=== PATIENT | female | born 2000 | race Caucasian/White ===

== ENCOUNTER 2021-02-06 19:45 | Emergency (ER) | payer BC, SELFPAY ==
[2021-02-06 19:58] VITALS: BP 102/62; PULSE 66; RESP 17; TEMP 36.4; O2SAT 100; BMI 21.2
--- NOTE | 2021-02-06 19:58 | XRR_ITS ---
PROCEDURE INFORMATION: Exam: XR Chest Exam date and time: 02/06/2021 8:27 PM Age: 20 years old Clinical indication: Other: Pre-syncope TECHNIQUE: Imaging protocol: XR of the chest. Views: Frontal portable upright view of the chest. COMPARISON: No relevant prior studies available. FINDINGS: Lungs: Mild pulmonary hyperexpansion. The lungs are otherwise peripherally clear bilaterally. The pulmonary vasculature is normal. Pleural spaces: No pleural effusion. No pneumothorax. Heart/Mediastinum: The heart is normal in size and contour. Bones/joints: No acute abnormality identified. XR/XR chest 1V portable [id number] IMPRESSION: Mild pulmonary hyperexpansion.
--- NOTE | 2021-02-06 19:58 | ECG_ITS ---
[facility] Test Date: 2021-02-06 Pat Name: Sandar Montenegro Department: Room: Gender: Female Inseamer: : 2000 Requested By: Anurag Valdivia I Order Number: [id number] Puja MD: Pete Hernandez M.D. Measurements Intervals [place] Rate: 63 P: 58 SC: 115 QRS: 81 QRSD: 88 T: 60 QT: 381 QTc: 392 Interpretive Statements SINUS RHYTHM WITH SINUS ARRHYTHMIA WITH SHORT SC INTERVAL No previous ECG available for comparison Electronically Signed On 02-07-2021 20:12:32 CDT by Pete Hernandez M.D. [id number] f
[2021-02-06 20:04] VITALS: BP 102/62; PULSE 62; RESP 18; O2SAT 100
[2021-02-06 20:26] LABS: Basophils % 0.5 %; Eosinophils # 0.1 10^3/uL (0.0-0.8); Hematocrit 39.6 % (37.0-47.0); Hemoglobin 13.4 g/dL (11.5-15.3); Lymphocytes # 3.2 10^3/uL (1.5-6.5); Lymphocytes % 53.4 %; Mean Corpuscular HGB Conc 33.8 g/dL (30.0-36.0); Mean Corpuscular Hemoglobin 30.5 pg (28.0-34.0); Mean Corpuscular Volume 90.2 fL (81-99); Mean Platelet Volume 9.7 fL (7.4-10.4); Monocytes # 0.5 10^3/uL (0.2-0.9); Monocytes % 8.1 %; Neutrophils # 2.22 10^3/uL (1.8-8.0); Neutrophils % 36.8 %; Nucleated Red Blood Cells % 0 %; Platelet Count 318 10^3/cmm (130-400); Red Blood Count 4.39 10^6/uL (4.1-5.3); Red Cell Distribution Width 11.9 % (12.1-15.1)
[2021-02-06 20:42] LABS: D Dimer <= 0.27 ug/mIFEU (0-0.59)
[2021-02-06 20:47] LABS: Troponin(5th) Baseline 6 ng/L (0-10)
[2021-02-06 20:55] LABS: Alanine Aminotransferase 8 U/L (0-33); Albumin Level 4.4 g/dL (3.5-5.2); Alkaline Phosphatase 50 IU/L (35-105); Anion Gap 13.8 (5-19); Aspartate Amino Transferase 14 U/L (0-32); Blood Urea Nitrogen 10 mg/dL (6-20); Calcium 8.5 mg/dL (8.5-10.5); Carbon Dioxide 23 mmol/L (22-29); Chloride 106 mmol/L (98-107); Globulin 1.9 g/dL (1.3-4.6); Glomerular Filtration Rate 79.8 mL/min (90-130); Glucose 113 mg/dL (65-115); NT Pro B Type Natriuretic Pept 55 pg/mL (0-125); Osmolality Calculated 288 mOsm/kg (285-295); Potassium 3.8 mmol/L (3.5-5.1); Sodium 139 mmol/L (136-145); Total Bilirubin 0.4 mg/dL (0.15-1.2); Total Protein 6.3 g/dL (6.6-8.7)
[2021-02-06 21:00] VITALS: BP 97/60; PULSE 65; RESP 20; O2SAT 99
[2021-02-06 21:01] VITALS: BP 100/55; BP 104/64; BP 107/70; PULSE 104; PULSE 64; PULSE 92
[2021-02-06 21:09] LABS: HCG, Serum Qual Negative (Negative)
[2021-02-06] MEDS: sodium chloride 0.9% 1,000 ML 999 ML IV (21:21)
--- NOTE | 2021-02-06 21:58 | ECG_ITS ---
[facility] Test Date: 2021-02-06 Pat Name: Sandra Montenegro Department: Room: Gender: Female [place] Encaser: : 2000 Requested By: Anurag Valdivia I Order Number: [id number] Puja MD: Pete Hernandez M.D. Measurements Intervals [place] Rate: 73 P: 67 PA: 126 QRS: 88 QRSD: 92 T: 59 QT: 393 QTc: 434 Interpretive Statements SINUS RHYTHM WITH SINUS ARRHYTHMIA Compared to ECG 02/06/2021 20:29:28 Short PA interval no longer present Electronically Signed On 02-07-2021 20:14:42 CDT by Pete Hernandez M.D. [id number] f
[2021-02-06 22:02] VITALS: BP 117/57; PULSE 65; RESP 17; O2SAT 97
[2021-02-06 22:31] LABS: Troponin 5 2HR Delta 0 ABS# (0-10)
--- NOTE | 2021-02-06 22:47 | W.ED.SYNCOPE ---
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 Syncopal episode lasted only a few seconds but she did not actually fall and hit her head. She was called by her coworkers. When her blood pressure was checked after the event she was hypotensive. Her symptoms have all resolved now. She has had a prior history of this but she states that it was a long time ago. She denies any chest pain shortness of breath, dizziness or confusion. She denies any fever or recent illness. MD complaint: loss of consciousness Onset (ago): minute(s) -: second(s) Prodromal symptoms: vision changes Witnessed: Yes - by Bystander (coworker) Context: standing up Injuries sustained associated with event: none Associated symptoms: Deny abdominal pain, chest pain, fever(s), headache(s), lightheadedness, nausea, short of breath, vertigo or weakness History: previous syncopal episode Treatments prior to arrival: none Review of Systems General: Reports: 10 or more systems reviewed and unremarkable except in HPI and below Const: Denies: fever(s) Card: Denies: chest pain or lightheadedness GI: Denies: abdominal pain or nausea Neuro: Denies: headache(s) or vertigo Physical Exam Const: COMMON NORMALS: no acute distress, average body habitus, patient oriented x3, no limitations, healthy appearing, alert and well nourished HENMT: COMMON NORMALS: normocephalic, atraumatic and moist oral mucous membranes HEAD & SCALP: normocephalic and atraumatic Eye: COMMON NORMALS: Equal, round and reactive pupils present, EOMs intact bilaterally, conjunctivae normal and no scleral icterus CONJUNCTIVA: Yes conjunctivae normal PUPIL: Yes Equal, round and reactive pupils present Neck/C-Spine: COMMON NORMALS: full ROM, supple, no meningeal signs, no JVD and No carotid bruits Resp: COMMON NORMALS: normal respiratory effort, No retractions, No use of accessory muscles, clear to auscultation bilaterally and percussion normal AUSCULTATION: clear to auscultation bilaterally PERCUSSION: percussion normal Cardio: COMMON NORMALS: no JVD, regular rate, regular rhythm, S1 normal heart sound present, S2 normal heart sound present, No gallops present (Cardio), No clicks present (Cardio), No murmurs present (Cardio), No rub (Cardio) and Peripheral pulses 2+ throughout RATE: regular rate RHYTHM: regular rhythm HEART SOUNDS: S1 normal heart sound present and S2 normal heart sound present PERIPHERAL PULSES: Peripheral pulses 2+ throughout GI: COMMON NORMALS: Normal to inspection, nondistended, normoactive bowel sounds present, Soft to palpation, non-tender, No hepatosplenomegaly present, no masses and no bruits PALPATION: Yes Soft to palpation and Yes No hepatosplenomegaly present : COMMON NORMALS: Yes no CVA tenderness BLADDER/KIDNEY EXAM: Yes no CVA tenderness Back/Pelvis: COMMON NORMALS: no CVA tenderness Extremity: COMMON NORMALS: normal to inspection, full ROM, capillary refill normal, no calf tenderness and no pedal edema Neuro: COMMON NORMALS: patient oriented x3 SENSORIUM/ORIENTATION: Yes alert MENINGEAL SIGNS: Yes no meningeal signs Skin: COMMON NORMALS: no rashes or lesions noted, no wounds, turgor normal, no jaundice, no petechiae and no mottling GENERAL SKIN EXAM: no rashes or lesions noted and turgor normal Course Reevaluation(s): Reevaluation #1: Discussed her lab and imaging findings with her. Negative for acute findings. Orthostatic vital signs shows that she is orthostatic with her heart rate jumping from 64 while lying down to 104 while standing. Blood pressure did not change significantly. She will be discharged home with no new orders. 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 Evaluation in the emergency department was unremarkable for acute illness but she was positive for orthostasis. She was given IV fluid hydration and discharged home with no new orders. Lab Data: Labs: Lab Results 02/06/21 02/06/21 02/06/21 Range/Units 20:14 20:14 20:14 WBC 6.0 (4.5-13.0) 10^3/ uL RBC 4.39 (4.1-5.3) 10^6/u L Hgb 13.4 (11.5-15.3) g/dL Hct 39.6 (37.0-47.0) % MCV 90.2 (81-99) fL MCH 30.5 (28.0-34.0) pg MCHC 33.8 (30.0-36.0) g/dL RDW 11.9 L (12.1-15.1) % Plt Count 318 (130-400) 10^3/c mm MPV 9.7 (7.4-10.4) fL Neut % (Auto) 36.8 % Lymph % (Auto) 53.4 % [facility] % (Auto) 8.1 % Eos % (Auto) 1.0 % Baso % (Auto) 0.5 % Neut # (Auto) 2.22 (1.8-8.0) 10^3/u L Lymph # (Auto) 3.2 (1.5-6.5) 10^3/u L [facility] # (Auto) 0.5 (0.2-0.9) 10^3/u L Eos # (Auto) 0.1 (0.0-0.8) 10^3/u L Baso # (Auto) 0.0 (0.0-0.1) 10^3/u L Nucleated RBC % (a uto) 0 % Nucleated RBCs # 0.0 /100WBC PT 14.60 (12.1-14.9) SECO NDS INR 1.10 (0.8-1.2) D-Dimer <= 0.27 (0-0.59) ug/mIFE U Sodium 139 (136-145) mmol/L Potassium 3.8 (3.5-5.1) mmol/L Chloride 106 (98-107) mmol/L Carbon Dioxide 23 (22-29) mmol/L Anion Gap 13.8 (5-19) BUN 10 (6-20) mg/dL Creatinine 0.9 (0.5-0.9) mg/dL GFR Calculation 79.8 L (90-130) mL/min Glucose 113 (65-115) mg/dL Calculated Osmolal ity 288 (285-295) mOsm/k g Calcium 8.5 (8.5-10.5) mg/dL Total Bilirubin 0.4 (0.15-1.2) mg/dL AST 14 (0-32) U/L ALT 8 (0-33) U/L Alkaline Phosphata se 50 (35-105) IU/L Troponin T Baselin e (0-10) ng/L Troponin T 120 Min [place] (0-10) ng/L Delta Troponin T (0-10) ABS# NT-Pro-B Natriuret Pep 55 (0-125) pg/mL Total Protein 6.3 L (6.6-8.7) g/dL Albumin 4.4 (3.5-5.2) g/dL Globulin 1.9 (1.3-4.6) g/dL HCG, Qual (Negative) 02/06/21 02/06/21 02/06/21 Range/Units 20:14 20:14 22:10 WBC (4.5-13.0) 10^3/ uL RBC (4.1-5.3) 10^6/u L Hgb (11.5-15.3) g/dL Hct (37.0-47.0) % MCV (81-99) fL MCH (28.0-34.0) pg MCHC (30.0-36.0) g/dL RDW (12.1-15.1) % Plt Count (130-400) 10^3/c mm MPV (7.4-10.4) fL Neut % (Auto) % Lymph % (Auto) % [facility] % (Auto) % Eos % (Auto) % Baso % (Auto) % Neut # (Auto) (1.8-8.0) 10^3/u L Lymph # (Auto) (1.5-6.5) 10^3/u L [facility] # (Auto) (0.2-0.9) 10^3/u L Eos # (Auto) (0.0-0.8) 10^3/u L Baso # (Auto) (0.0-0.1) 10^3/u L Nucleated RBC % (a uto) % Nucleated RBCs # /100WBC PT (12.1-14.9) SECO NDS INR (0.8-1.2) D-Dimer (0-0.59) ug/mIFE U Sodium (136-145) mmol/L Potassium (3.5-5.1) mmol/L Chloride (98-107) mmol/L Carbon Dioxide (22-29) mmol/L Anion Gap (5-19) BUN (6-20) mg/dL Creatinine (0.5-0.9) mg/dL GFR Calculation (90-130) mL/min Glucose (65-115) mg/dL Calculated Osmolal ity (285-295) mOsm/k g Calcium (8.5-10.5) mg/dL Total Bilirubin (0.15-1.2) mg/dL AST (0-32) U/L ALT (0-33) U/L Alkaline Phosphata se (35-105) IU/L Troponin T Baselin e 6 (0-10) ng/L Troponin T 120 Min [place] 6.00 (0-10) ng/L Delta Troponin T 0 (0-10) ABS# NT-Pro-B Natriuret Pep (0-125) pg/mL Total Protein (6.6-8.7) g/dL Albumin (3.5-5.2) g/dL Globulin (1.3-4.6) g/dL HCG, Qual Negative (Negative) Imaging Data^: CXR: Attestation: I personally reviewed and interpreted this imaging study as follows: Radiologist's impression: No acute findings EKG Data^: EKG 1: Attestation: I personally reviewed and interpreted this EKG as follows: EKG interpretation date: 02/06/21 EKG interpretation time: 20:29 Prior EKG tracings: not available for review Interpretation: Sinus rhythm with sinus arrhythmia. Heart rate 63 bpm. Normal axis. No ST changes. EKG 2: Attestation: I personally reviewed and interpreted this EKG as follows: EKG interpretation date: 02/06/21 EKG interpretation time: 22:13 Prior EKG tracings: available for review Interpretation: Sinus rhythm with sinus arrhythmia. Heart rate 73 bpm. Normal axis. No ST changes. No significant change from earlier Discharge Plan Discharge Patient Disposition: Home Clinical Impression: Syncope due to orthostatic hypotension Condition: Stable Prescriptions: Continued Apri 0.15-0.03 mg Tablet 1 tab PO DAILY RF: 0 Zyrtec 10 mg Tablet 10 mg PO DAILY RF: 0 Discharge Orders: Discharge ED (Routine); Ordered 02/06/21 Ordered By: Anurag Valdivia Referrals: Erin Wu MD [Primary Care Provider] - 1-3 days Discharge Diet: Usual diet Discharge Activity: Increase activity as tolerated Patient Instructions: Syncope (ED) Activity Restrictions/Additional Instructions: Return for any new or worsening symptoms. Follow-up with your primary care provider within 3 days. Drink plenty of fluids to keep well-hydrated. Stand Alone Forms: Work/School Release Coding Level of Care Code ED Spinning Bath Person for Jami Martinez
[2021-02-06 23:25] VITALS: BP 103/66; PULSE 77; RESP 18; O2SAT 99
== END 2021-02-06 23:26 | disposition home or self-care (01) ==
PROVIDERS: Emergency Provider Family Medicine; PCP Family Medicine
DX: I95.1 Orthostatic hypotension (principal)
CPT/HCPCS: 71045; 80053; 83880; 84484; 84703; 85025; 85378; 85610; 93005; 96360; 99284; J7030

== ENCOUNTER 2021-02-18 19:08 | Emergency (ER) | payer OTHER, BC, SELFPAY ==
[2021-02-18 19:13] VITALS: BP 127/76; PULSE 77; RESP 17; TEMP 36.6; O2SAT 97; BMI 21.2
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
[2021-02-18 21:03] VITALS: BP 135/76; PULSE 88; RESP 14; O2SAT 96
== END 2021-02-18 21:05 | disposition home or self-care (01) ==
PROVIDERS: Emergency Provider Physician Assistant; PCP Family Medicine
DX: S01.111A Laceration without foreign body of right eyelid and periocular area, initial encounter (principal); V89.2XXA Person injured in unspecified motor-vehicle accident, traffic, initial encounter
CPT/HCPCS: 12051; 67935; 70486; 99283